=== PATIENT | female | born 1985 | race Hispanic/Latino ===

== ENCOUNTER 2023-06-05 07:39 | Emergency (ER) | payer OTHER ==
[~2023-06-05] VITALS: Ht 172.7 cm; Wt 70.0 kg
[2023-06-05 07:49] VITALS: BP 123/87
[2023-06-05 08:13] LABS: BASO% 0.3 % (0-3); EOS% 0.5 % (0-8); HEMATOCRIT 40.4 % (37.0-47.0); LYMPH% 38.7 % (15-41); MEAN CELL VOLUME 87.8 fL CALC (80.0-100.0); MEAN CORPUSCULAR HGB 28.3 pG CALC (26.0-32.0); MEAN CORPUSCULAR HGB CONC 32.2 g/dL CAL (32.0-36.0); MONO% 5.7 % (2-13); NEUT% 54.8 % (42-76); RED BLOOD COUNT 4.6 mill/uL (4.20-5.60); RED CELL DISTRI WIDTH 12.5 % (11.5-15.5)
[2023-06-05 08:29] LABS: ALBUMIN 4.6 g/dL (3.2-5.0); ALKALINE PHOSPHATASE 74 u/l (38-126); ANION GAP 14 (6-22 (CALC)); BILIRUBIN, TOTAL 0.4 mg/dL (0.02-1.3); BUN 12 mg/dL (7-17); BUN/CREATININE RATIO 23 (12-20 (CALC)); CARBON DIOXIDE 27 mmol/l (22-30); CHLORIDE 102 mmol/l (95-108); CREATININE 0.5 mg/dL (0.5-1.0); GFR FOR AFR.AMER. > 60 ML/MIN (>=60 (CALC)); GFR OTHER RACES > 60 ML/MIN (>=60 (CALC)); LIPASE 83 u/l (23-300); POTASSIUM 4.1 mmol/l (3.5-5.1); SGOT/AST 24 u/l (14-36); SODIUM 139 mmol/l (137-146); TOTAL PROTEIN 8.4 g/dL (6.3-8.2)
[2023-06-05 09:22] VITALS: BP 107/60
[2023-06-05 09:30] VITALS: BP 99/60
[2023-06-05 09:47] LABS: URINE BILIRUBIN - DIPSTICK NEGATIVE (NEGATIVE); URINE COLOR YELLOW; URINE GLUCOSE - DIPSTICK NEGATIVE (NEGATIVE); URINE KETONE Negative (NEGATIVE); URINE PH 7.5 (4.5-8.0); URINE PROTEIN - DIPSTICK Trace mg/dL (NEG-TRACE)
[2023-06-05 09:48] LABS: URINE BLOOD DIPSTICK MODERATE (NEGATIVE); URINE LEUK ESTERASE NEGATIVE (NEGATIVE); URINE NITRITE - DIPSTICK NEGATIVE (Negative); URINE UROBILINOGEN - DIPSTICK 0.2 E.U./dL (0.2)
[2023-06-05 09:55] LABS: URINE SQUAMOUS EPITHELIAL CELL MODERATE EPI/hpf (0-FEW)
[2023-06-05 09:56] LABS: URINE BACTERIA MODERATE hpf
[2023-06-05 10:29] VITALS: BP 110/66
[2023-06-05 10:30] VITALS: BP 105/67
[2023-06-05] MEDS ORDERED: CARAFATE1 GM/10 M1 PO (11:02)
[2023-06-05] MEDS ORDERED: CITRATE OF MEGNESIA PO (11:02)
[2023-06-05] MEDS ORDERED: PROTONIX40 M2 PO (11:02)
[2023-06-05] MEDS ORDERED: ZOFRAN4 MG/TAB PO (11:02)
[2023-06-05 11:10] VITALS: BP 105/67
== END 2023-06-05 11:13 | disposition home or self-care (01) | DRG 384 ==
LOC: ED 07:39
PROVIDERS: Family Medicine
DX: K25.9 Gastric ulcer, unspecified as acute or chronic, without hemorrhage or perforation (principal)
CPT/HCPCS: Q9967; S0164

== ENCOUNTER 2023-08-13 07:08 | Day surgery (SDC) | payer OTHER ==
[~2023-08-13] VITALS: Ht 158 cm; Wt 68.0 kg
[~2023-08-13 07:08] MED LIST: CARAFATE1 GM/10 M1 PO; CITRATE OF MEGNESIA PO; PROTONIX40 M2 PO; ZOFRAN4 MG/TAB PO
[2023-08-13 10:36] VITALS: BP 100/64
== END 2023-08-13 10:24 | disposition home or self-care (01) ==
LOC: ENDO 07:08 → ORM 10:40
PROVIDERS: ATTEND Internal Medicine Gastroenterology
DX: K29.70 Gastritis, unspecified, without bleeding (principal); K31.9 Disease of stomach and duodenum, unspecified; K21.9 Gastro-esophageal reflux disease without esophagitis

== ENCOUNTER 2024-08-02 06:03 | Emergency (ER) | payer OTHER ==
[~2024-08-02] VITALS: Ht 157.5 cm; Wt 68.0 kg
[2024-08-02] VITALS (15 sets, daily range): BP systolic 87–120; BP diastolic 44–75
[~2024-08-02 06:03] MED LIST changes: +ATIVAN1 M1 PO
[2024-08-02] MEDS ORDERED: FAMOTIDINE 10MG/ML 2ML SDV IV ONE (06:30)
[2024-08-02] MEDS ORDERED: SODIUM CHLORIDE 0.9% 1,000 ML IV ONE (06:30)
[2024-08-02] MEDS ORDERED: DICYCLOMINE HCL 20 MG/2 ML VIAL IM ONE (06:30)
[2024-08-02] MEDS ORDERED: LIDOCAINE VISCOUS 2% 15 ML UDC PO ONE ×2 (06:30→09:20)
[2024-08-02 06:47] LABS: BASO% 0.1 % (0-3); EOS% 0.4 % (0-8); HEMATOCRIT 41.1 % (37.0-47.0); HEMOGLOBIN 13.3 g/dl (12.0-16.0); IMMATURE GRANULOCYTES 0.2 % (0.0-5.0); MEAN CELL VOLUME 90.1 fL CALC (80.0-100.0); MEAN CORPUSCULAR HGB 29.2 pG CALC (26.0-32.0); MEAN CORPUSCULAR HGB CONC 32.4 g/dL CAL (32.0-36.0); MONO% 6.2 % (2-13); NEUT# 6.67 thou/uL (2.00-7.15); NEUT% 63.1 % (42-76); RED BLOOD COUNT 4.56 mill/uL (4.20-5.60)
[2024-08-02 07:03] LABS: LIPASE 48 u/l (23-300)
[2024-08-02 07:03] LABS: ALBUMIN 4.7 g/dL (3.2-5.0); CREATININE 0.5 mg/dL (0.5-1.0); TOTAL PROTEIN 8.4 g/dL (6.3-8.2)
[2024-08-02 07:08] LABS: BILIRUBIN, TOTAL 0.7 mg/dL (0.02-1.3)
[2024-08-02 09:13] LABS: URINE BILIRUBIN - DIPSTICK Negative (NEGATIVE); URINE BLOOD DIPSTICK Trace-lysed (NEGATIVE); URINE GLUCOSE - DIPSTICK Negative (NEGATIVE); URINE KETONE Negative (NEGATIVE); URINE LEUK ESTERASE Trace (Negative); URINE NITRITE - DIPSTICK Negative (Negative); URINE PH 6.5 (4.5-8.0); URINE PROTEIN - DIPSTICK Negative (NEG-TRACE); URINE SPECIFIC GRAVITY 1.025; URINE UROBILINOGEN - DIPSTICK 0.2 E.U./dL (0.2)
[2024-08-02 09:19] LABS: URINE CLARITY Slightly Cloudy; URINE COLOR Yellow
[2024-08-02] MEDS ORDERED: MORPHINE SULFATE 4 MG/ML VIAL IV ONE (09:20)
[2024-08-02] MEDS ORDERED: ALUM & MAG HYDROX-SIMETHICONE 30 ML PO ONE (09:20)
[2024-08-02] MEDS ORDERED: REGLAN10 MG PO ×2 (09:42→09:57)
[2024-08-02] MEDS ORDERED: NEXIUM40 M1 PO ×2 (09:42→09:57)
== END 2024-08-02 09:59 | disposition home or self-care (01) | DRG 392 ==
LOC: ED 06:03
PROVIDERS: Emergency Medicine
DX: K29.70 Gastritis, unspecified, without bleeding (principal); F41.9 Anxiety disorder, unspecified
CPT/HCPCS: Q9967